=== PATIENT | female | born 1990 | race Caucasian/White ===

== ENCOUNTER 2017-09-15 02:08 | Emergency (ER) | payer MEDICAID ==
[~2017-09-15] VITALS: Ht 165.1 cm; Wt 78.9 kg
[2017-09-15 02:15] VITALS: Ht 165.1 cm; Wt 78.9 kg
[2017-09-15 03:20] VITALS: BP 103/64
== END 2017-09-15 03:21 | disposition home or self-care (01) ==
LOC: ED 02:08
DX: R00.2 Palpitations (principal); G43.909 Migraine, unspecified, not intractable, without status migrainosus; Z88.1 Allergy status to other antibiotic agents